=== PATIENT | female | born 1980 | race Caucasian/White ===

== ENCOUNTER 2017-11-28 19:02 | Emergency (ER) | payer OTHER ==
[2017-11-28] MEDS: HYDROCODONE/APAP (5/325) TAB PO (21:22)
[2017-11-28 21:26] LABS: URINE BLOOD (Dip) POC Trace-lysed (NEGATIVE); URINE GLUCOSE (Dip) POC Negative (NEGATIVE); URINE KETONES (Dip) POC Negative (NEGATIVE); URINE LEUKOCYTE EST (Dip) POC Negative (NEGATIVE); URINE NITRITE (Dip) POC Negative (NEGATIVE); URINE TOTAL PROTEIN POC Negative (NEGATIVE)
[2017-11-28 21:43] LABS: ADD UMIC YES; UR ASCORBIC ACID NEGATIVE (NEGATIVE); UR BILIRUBIN (Dip) NEGATIVE (NEGATIVE); UR BLOOD (Dip) 1+ mg/dL (NEGATIVE); UR CLARITY CLEAR (CLEAR); UR COLOR YELLOW (YELLOW); UR GLUCOSE (Dip) NEGATIVE (NEGATIVE); UR KETONES (Dip) NEGATIVE (NEGATIVE); UR LEUKOCYTE ESTERASE (Dip) NEGATIVE Leu/ul (NEGATIVE); UR NITRITE (Dip) NEGATIVE (NEGATIVE); UR RBC 3 /HPF (0-5); UR SPECIFIC GRAVITY (Dip) 1.017 (1.003-1.030); UR SQUAMOUS EPITHELIAL CELL FEW /HPF (FEW); UR TOTAL PROTEIN (Dip) NEGATIVE (NEGATIVE); UR UROBILINOGEN (Dip) 1+ mg/dL (NEGATIVE); UR WBC 0 /HPF (0-5)
== END 2017-11-29 00:58 | disposition home or self-care (01) ==
LOC: FTE 11-29 00:58
DX: N76.0 Acute vaginitis (principal); R40.2412 Glasgow coma scale score 13-15, at arrival to emergency department; R10.2 Pelvic and perineal pain
CPT/HCPCS: 76830; 76856; 81001; 81003; 81025; 87081; 87220; 87591; 99284-25

== ENCOUNTER 2018-01-10 03:32 | Emergency (ER) | payer OTHER ==
[2018-01-10 04:17] LABS: URINE BLOOD (Dip) POC 3+ (NEGATIVE); URINE GLUCOSE (Dip) POC Negative (NEGATIVE); URINE KETONES (Dip) POC Negative (NEGATIVE); URINE LEUKOCYTE EST (Dip) POC 1+ (NEGATIVE); URINE NITRITE (Dip) POC Negative (NEGATIVE); URINE TOTAL PROTEIN POC 2+ (NEGATIVE)
== END 2018-01-10 04:48 | disposition home or self-care (01) ==
LOC: FTE 03:32
DX: N30.00 Acute cystitis without hematuria (principal)
CPT/HCPCS: 81003; 81025; 99283

== ENCOUNTER 2018-03-29 10:38 | Emergency (ER) | payer SELFPAY, OTHER ==
[2018-03-29] MEDS: HYDROCODONE/APAP (5/325) TAB PO (13:16)
[2018-03-29 13:21] LABS: URINE BLOOD (Dip) POC Trace-intact (NEGATIVE); URINE GLUCOSE (Dip) POC Negative (NEGATIVE); URINE KETONES (Dip) POC Negative (NEGATIVE); URINE LEUKOCYTE EST (Dip) POC Negative (NEGATIVE); URINE NITRITE (Dip) POC Negative (NEGATIVE); URINE TOTAL PROTEIN POC Negative (NEGATIVE)
== END 2018-03-29 16:42 | disposition home or self-care (01) ==
LOC: FTE 10:38
DX: S19.9XXA Unspecified injury of neck, initial encounter (principal); S30.1XXA Contusion of abdominal wall, initial encounter; S50.00XA Contusion of unspecified elbow, initial encounter; W01.0XXA Fall on same level from slipping, tripping and stumbling without subsequent striking against object, initial encounter; Y92.89 Other specified places as the place of occurrence of the external cause
CPT/HCPCS: 72040; 72072; 72100; 73080-RT; 76705; 81003; 81025; 99284-25

== ENCOUNTER 2018-05-24 16:20 | Emergency (ER) | payer OTHER | END 2018-05-24 17:55 | disposition home or self-care (01) | LOC: FTE 16:20 | DX: J00 Acute nasopharyngitis [common cold] (principal); R40.2412 Glasgow coma scale score 13-15, at arrival to emergency department | CPT/HCPCS: 99283; Z7502 ==

== ENCOUNTER 2018-08-04 01:52 | Emergency (ER) | payer OTHER ==
[2018-08-04 04:41] LABS: ADD UMIC YES; UR ASCORBIC ACID NEGATIVE (NEGATIVE); UR BACTERIA FEW /HPF (NONE SEEN); UR BILIRUBIN (Dip) NEGATIVE (NEGATIVE); UR BLOOD (Dip) 3+ mg/dL (NEGATIVE); UR CLARITY CLOUDY (CLEAR); UR COLOR RED (YELLOW); UR GLUCOSE (Dip) 1+ mg/dL (NEGATIVE); UR KETONES (Dip) NEGATIVE (NEGATIVE); UR LEUKOCYTE ESTERASE (Dip) 2+ Leu/ul (NEGATIVE); UR NITRITE (Dip) NEGATIVE (NEGATIVE); UR NONSQUAMOUS EPITHELIAL CELL 2 /HPF (NONE SEEN); UR RBC > 182 /HPF (0-5); UR SPECIFIC GRAVITY (Dip) 1.009 (1.003-1.030); UR TOTAL PROTEIN (Dip) 2+ mg/dl (NEGATIVE); UR UROBILINOGEN (Dip) NEGATIVE (NEGATIVE); UR WBC > 182 /HPF (0-5)
== END 2018-08-04 05:25 | disposition home or self-care (01) ==
LOC: FTE 05:25
DX: N39.0 Urinary tract infection, site not specified (principal)
CPT/HCPCS: 81001; 81025; 87086; 99283

== ENCOUNTER 2018-11-19 22:28 | Emergency (ER) | payer OTHER ==
[2018-11-20] MEDS: LORAZEPAM 1 MG TAB PO (02:30)
[2018-11-20] MEDS: ASPIRIN 325 MG TAB PO (02:30)
[2018-11-20] MEDS: FAMOTIDINE 20 MG TAB PO (02:30)
[2018-11-20 02:35] LABS: ADD MAN DIFF? NO
[2018-11-20 02:36] LABS: BASOPHILS % 0.4 % (0.0-2.0); EOSINOPHILS # 0.2 10^3/ul (0.0-0.5); EOSINOPHILS % 2.2 % (0.0-7.0); HEMATOCRIT 37.7 % (37.0-47.0); HEMOGLOBIN 12.8 g/dl (12.0-16.0); LYMPHOCYTES # 2.5 10^3/ul (0.8-2.9); LYMPHOCYTES % 36.4 % (15.0-51.0); MEAN CORPUSCULAR HEMOGLOBIN 30.3 pg (29.0-33.0); MEAN CORPUSCULAR VOLUME 89.1 fl (82.0-101.0); MEAN PLATELET VOLUME 10.6 fl (7.4-10.4); MONOCYTE # 0.4 10^3/ul (0.3-0.9); MONOCYTES % 5.5 % (0.0-11.0); NEUTROPHIL # 3.8 10^3/ul (1.6-7.5); NEUTROPHILS % 55.2 % (39.0-77.0); PLATELET COUNT 211 10^3/UL (140-415); RED BLOOD COUNT 4.23 10^6/ul (4.20-5.40)
[2018-11-20 02:36] LABS: WHITE BLOOD COUNT 6.9 10^3/ul (4.8-10.8)
[2018-11-20] MEDS: HYDROCODONE/APAP (5/325) TAB PO (02:50)
[2018-11-20 02:52] LABS: INR 0.89; PROTIME 12.1 Sec (11.9-14.9); PT RATIO 0.9
[2018-11-20 02:53] LABS: PARTIAL THROMBOPLASTIN TIME 33.8 Sec (23.0-35.0)
[2018-11-20 02:56] LABS: ALANINE AMINOTRANSFERASE 77 IU/L (13-69); ALBUMIN 4.2 g/dl (3.3-4.9); ALKALINE PHOSPHATASE 71 IU/L (42-121); ANION GAP 8 (5-13); ASPARTATE AMINO TRANSFERASE 79 IU/L (15-46); BILIRUBIN,INDIRECT 0.6 mg/dl (0-1.1); BILIRUBIN,TOTAL 0.6 mg/dl (0.2-1.3); BLOOD UREA NITROGEN 8 mg/dl (7-20); CALCIUM 9.4 mg/dl (8.4-10.2); CARBON DIOXIDE 27 mmol/L (21-31); CHLORIDE 107 mmol/L (97-110); CREATININE 0.43 mg/dl (0.44-1.00); Estimated GFR > 60 mL/min (>60); GLUCOSE 91 mg/dl (70-220); LIPASE 116 U/L (23-300); POTASSIUM 3.9 mmol/L (3.5-5.1); SODIUM 142 mmol/L (135-144); TOTAL PROTEIN 7.7 g/dl (6.1-8.1)
[2018-11-20 03:07] LABS: TROPONIN-I < 0.012 ng/ml (0.000-0.120)
[2018-11-20 03:43] LABS: B-TYPE NATRIURETIC PEPTIDE 110 PG/ML (0-125)
== END 2018-11-20 05:45 | disposition home or self-care (01) ==
LOC: FTE 22:28
DX: R07.89 Other chest pain (principal)
CPT/HCPCS: 36415; 71046; 80053; 81025; 83690; 83880; 84484; 85025; 85610; 85730; 99285-25